=== PATIENT | female | born 2000 | race Caucasian/White ===

== ENCOUNTER 2022-02-07 23:12 | Emergency (ER) | payer OTHER ==
[~2022-02-07] VITALS: Ht 154.9 cm; Wt 77.1 kg
[~2022-02-07 23:12] MED LIST: IBUP100S20 PO; PROM118S5 PO; [UNRECOGNIZED DRUG - CODE] PO
[2022-02-07 23:15] VITALS: BP 111/67
--- NOTE | 2022-02-07 23:19 | NUR ---
TO LOBBY A/W BED AMBULATORY
[2022-02-08] MEDS ORDERED: ONDANSETRON 4 MG TAB PO ONE (01:45)
[2022-02-08 02:08] LABS: APPEARANCE,URINE HAZY (CLEAR); BILIRUBIN,URINE NEGATIVE (NEGATIVE); BLOOD, URINE TRACE-L (NEGATIVE); COLOR,URINE YELLOW (YELLOW); LEUKOCYTE ESTERASE ,URINE 1+ (NEGATIVE); NITRITE, URINE NEGATIVE (NEGATIVE); UGLUCOSE NEGATIVE (NEGATIVE)
[2022-02-08 02:21] LABS: RBC,URINE 0-5 /HPF (0-5)
[2022-02-08] MEDS ORDERED: ONDA-188 SL (02:25)
[2022-02-08] MEDS ORDERED: NITR100C7 PO (02:25)
[2022-02-08 02:28] VITALS: BP 111/67
--- NOTE | 2022-02-08 02:28 | NUR ---
Patient discharged with v/s stable. Written and verbal after care instructions given and explained. Patient alert, oriented and verbalized understanding of instructions. Ambulatory with steady gait. All questions addressed prior to discharge. ID band removed. Patient advised to follow up with PMD. Rx of ZOFRAN ANDMACROBID given. Patient educated on indication of medication including possible reaction and side effects. Opportunity to ask questions provided and answered.
== END 2022-02-08 02:28 | disposition home or self-care (01) ==
LOC: MED 23:12
DX: N39.0 Urinary tract infection, site not specified (principal); Z88.8 Allergy status to other drugs, medicaments and biological substances
CPT/HCPCS: 81001; 81025; 87086; 99283; Q0162

== ENCOUNTER 2023-11-12 17:36 | Emergency (ER) | payer OTHER ==
[~2023-11-12] VITALS: Ht 154.9 cm; Wt 66.2 kg
[~2023-11-12 17:36] MED LIST changes: +NITR100C7 PO; +ONDA-188 SL
[2023-11-12 18:10] VITALS: BP 131/66; PULSE 87; RESP 18; TEMP 98.6; O2SAT 100
== END 2023-11-12 20:08 | disposition home or self-care (01) ==
LOC: MED 17:36
DX: M25.642 Stiffness of left hand, not elsewhere classified (principal); Z79.899 Other long term (current) drug therapy; Z88.8 Allergy status to other drugs, medicaments and biological substances
CPT/HCPCS: 73140; 81025; 99283